=== PATIENT | female | born 1990 | race Caucasian/White ===

== ENCOUNTER 2019-06-08 09:41 | Inpatient (IN) | payer OTHER ==
[2019-06-07 14:08] VITALS: BMI 27.8
[2019-06-08] MEDS ORDERED: LIDOCAINE 0.5% (PF) 5 MG/ML (50 ML SDV) SQ PRN (10:22)
[2019-06-08] MEDS ORDERED: CARBOPROST TROMETHAMINE 250 MCG/ML 1 ML AMP IM PRN (10:22)
[2019-06-08] MEDS ORDERED: OXYTOCIN 10 UNIT/ML 1 ML VIAL IM PRN (10:22)
[2019-06-08] MEDS ORDERED: TERBUTALINE 1 MG/ML VIAL SQ PRN (10:22)
[2019-06-08] MEDS ORDERED: METHYLERGONOVINE 0.2 MG/ML 1 ML AMP IM PRN (10:22)
[2019-06-08] MEDS ORDERED: CITRIC ACID-SODIUM CITRATE 15 ML CUP PO ONE (10:43)
[2019-06-08] MEDS: LACTATED RINGERS 1,000 ML IV SCH (10:54)
[2019-06-08 10:55] LABS: Basophils # (A) 0.1 k/uL (0-0.2); Basophils % (A) 1 %; Eosinophils # (A) 0.2 k/uL (0-0.7); Eosinophils % (A) 2 %; HCT 36.5 % (34.0-46.0); HGB 12.2 gm/dL (11.4-16.0); Lymphocytes # (A) 2.4 k/uL (1.0-4.8); Lymphocytes % (A) 28 %; MCH 29.7 pg (25.0-35.0); MCHC 33.6 g/dL (31.0-37.0); MCV 88.3 fL (80.0-100.0); Mean Platelet Volume 6.6; Monocytes # (A) 0.6 k/uL (0-1.0); Monocytes % (A) 7 %; Neutrophils % (A) 60 %; Platelet Count 348 k/uL (150-450); RBC 4.13 m/uL (3.80-5.40); RDW 13.7 % (11.5-15.5); WBC 8.4 k/uL (3.8-10.6)
[2019-06-08] MEDS ORDERED: ONDANSETRON 4 MG/2 ML VIAL ONE ×2 (12:01)
[2019-06-08] MEDS ORDERED: OXYTOCIN 10 UNIT/ML 1 ML VIAL ONE ×2 (12:01)
[2019-06-08] MEDS ORDERED: NALBUPHINE 10 MG/ML (1 ML AMP) ONE ×2 (12:01)
[2019-06-08] MEDS ORDERED: ePHEDrine SULFATE/0.9% NACL/PF 50 MG/5 ML SYRINGE IV ONE ×2 (12:01)
[2019-06-08] MEDS ORDERED: MORPHINE SULFATE (PF) 0.3 MG/0.3 ML SYR ONE ×2 (12:01)
--- NOTE | 2019-06-08 12:46 | P.HPOB ---
History of Present Illness H&P Date: 06/08/19 Chief Complaint: IUP @ 39 1/7 weeks, h/o c/s x1 This is a pleasant 28-year-old 2 para 0101 at 39 and one sevenths weeks that presents to labor and delivery for repeat section. Patient has a prior history of PPROM at 19 weeks with subsequent delivery at 27 weeks. Patient has had an uncomplicated this time. She has been receiving routine care with myself. On admission she notes good movement she notes an occasional contraction she denies loss of fluid or vaginal bleeding. Next On bloodwork should a blood type of B+, rubella immune, B surface antigen negative, HIV negative, RPR nonreactive, GBS negative. Review of Systems Constitutional: Denies chills, Denies fatigue, Denies fever Ears, nose, mouth and throat: Denies headache Cardiovascular: Reports leg edema Respiratory: Denies dyspnea Gastrointestinal: Denies nausea, Denies vomiting Genitourinary: Reports Past Medical History Additional Past Medical History / Comment(s): heartburn, hx kidney infection History of Any Multi-Drug Resistant Organisms: None Reported Past Surgical History: Section Additional Past Surgical History / Comment(s): polyp removed from uterus Past Anesthesia/Blood Transfusion Reactions: No Reported Reaction Past Psychological History: No Psychological Hx Reported Smoking Status: Never smoker Past Alcohol Use History: None Reported Past Drug Use History: None Reported - Past Family History Mother Family Medical History: No Reported History Medications and Allergies Home Medications Medication Instructions Recorded Confirmed Type Pnv No.95/Ferrous Fum/Folic AC 1 each PO DAILY 06/07/19 06/08/19 History [ Multivitamin Tablet] Allergies Allergy/AdvReac Type Severity Reaction Status Date / Time gluten Allergy Unknown Verified 06/08/19 10:44 Exam Osteopathic Statement: *. No significant issues noted on an osteopathic structural exam other than those noted in the History and Physical/Consult. Vital Signs Temp Pulse Resp BP Pulse Ox 06/08/19 10:45 97.7 F 87 16 120/81 98 Targeted physical exam is performed and filer helper a well-nourished well- developed female in no acute distress, breathing is noted to be nonlabored heart has regular rate and rhythm abdomen is noted to be gravid and appropriate for gestational age, heart tones returned be category 1 and she is dania about every 5 minutes. Cervical exam is deferred. Results Result Diagrams: 06/08/19 10:35 Assessment and Plan (1) Term Current Visit: Yes Status: Acute Code(s): Z34.90 - ENCNTR FOR SUPRVSN OF NORMAL , UNSP, UNSP TRIMESTER SNOMED Code(s): 35460292 (2) H/O section Current Visit: Yes Status: Acute Code(s): Z98.891 - HISTORY OF UTERINE SCAR FROM PREVIOUS SURGERY SNOMED Code(s): 068507308 Plan: Patient is admitted with planned repeat section. Patient is understanding of the risks of surgery including but not limited to infection, bleeding, damage to bladder, bowel, ureteric or injury. All questions are answered and patient wishes to proceed.
[2019-06-08] MEDS ORDERED: METOCLOPRAMIDE 5 MG/ML 2 ML VIAL IVP PRN (12:51)
[2019-06-08] MEDS ORDERED: diphenhydrAMINE 25 MG CAP PO PRN (12:51)
[2019-06-08] MEDS ORDERED: diphenhydrAMINE 50 MG/ML 1 ML VIAL IVP PRN ×2 (12:51)
[2019-06-08] MEDS ORDERED: ACETAMINOPHEN TAB 325 MG TAB PO PRN (12:51)
[2019-06-08] MEDS ORDERED: NALOXONE 0.4 MG/ML 1 ML VIAL IV PRN (12:51)
[2019-06-08] MEDS ORDERED: ZOLPIDEM 5 MG TAB PO PRN (12:51)
[2019-06-08] MEDS ORDERED: diphenhydrAMINE 50 MG CAP PO PRN (12:51)
[2019-06-08] MEDS ORDERED: ACETAMINOPHEN IV (For NPO) 1,000 MG in EMPTY BAG 1 BAG IVPB ONE (12:51)
[2019-06-08] MEDS ORDERED: ONDANSETRON 4 MG/2 ML VIAL IVP PRN (12:51)
[2019-06-08] MEDS ORDERED: HYDROcodone/APAP 5-325MG 1 EACH TAB PO PRN (12:51)
--- NOTE | 2019-06-08 12:51 | P.OP ---
Date of Procedure: 06/08/19 Preoperative Diagnosis: IUP at 39 and 1/sevenths weeks history of at 27 weeks desires repeat Postoperative Diagnosis: Same, plus lower uterine segment uterine window Procedure(s) Performed: Repeat section Anesthesia: spinal Surgeon: Rachana Acosta Copy Cutter #1: Cherelle Sharma Estimated Blood Loss (ml): 800 IV fluids (ml): 900 Urine output (ml): 100 Pathology: none sent Condition: stable Disposition: observation Indications for Procedure: History of premature rupture of membranes, and subsequent at 27 weeks. Operative Findings: Ovaries and fallopian tubes appeared normal, lower uterine segment was noted to have a significant uterine window. Female delivered at 1216, weight of 6 lbs. 12 oz. with Apgars of 8 and 9 at one and 5 minutes respectfully. Description of Procedure: Patient was taken back to the operating room urged spinal anesthesia was found be adequate by the anesthesia department. She was then prepped and draped in normal sterile fashion in the dorsal supine position. A Pfannenstiel skin incision was made through her prior incision and carried to the underlying layer of fascia. The fascia was then incised in the midline and extended laterally. The superior aspect of the fascial incision was then grasped vicky clamps, elevated and underlying rectus muscles dissected off sharply. Attention was then turned to the inferior aspect of the fascial incision which was grasped with Marshall clamps, elevated and underlying rectus muscles dissected off sharply once again. The rectum muscles were in the midline, the peritoneum was identified and entered. The incision was then extended superiorly and inferiorly with good visualization the bladder. The bladder blade was then inserted into the abdomen and the vesicouterine peritoneum was identified and a bladder flap was created using sharp and blunt dissection. Hysterotomy incision was made with the scalpel amniotomy was performed and clear fluid was obtained. The head was encountered and delivered through the uterine incision. The umbilical cord was doubly clamped and cut and the was handed off to shahla ribeiro RN. The placenta was delivered manually and the uterus was cleared of all clots and debris with a moist laparotomy sponge. The uterine incision was then closed with 0 Vicryl in a running locked fashion from one lateral edge the other lateral edge. A second layer of suture was used to obtain hemostasis. Bleeding was noted from the midportion of the uterine incision in a [id number] suture was used to obtain hemostasis. The uterus was returned to the abdomen and the gutters were cleared of all clots and debris and the incision inspected once again, hemostasis was appreciated. The fascia was then closed with a running fashion from one lateral edge the other. The subcutaneous tissue was then irrigated and hemostasis was appreciated. Skin was closed with 4-0 Vicryl in a subcuticular fashion. Steri-Strips and sterile dressings were applied as needed. All counts were correct 2 patient tolerated procedure well.
[2019-06-08] MEDS ORDERED: IBUPROFEN IV 800 MG in SODIUM CHLORIDE 0.9% 250 ML IV ONE (12:53)
[2019-06-08] MEDS ORDERED: OXYTOCIN 20 UNITS/1000 ML NS 1,000 ML IV SCH (13:00)
[2019-06-08] MEDS: SENNOSIDES-DOCUSATE SODIUM 1 EACH TAB PO SCH (20:46)
[2019-06-08] MEDS: SIMETHICONE 80 MG CHEWABLE PO PRN (20:50)
[2019-06-09 06:57] LABS: Basophils % (A) 0 %; Eosinophils # (A) 0.1 k/uL (0-0.7); Eosinophils % (A) 1 %; HCT 31.9 % (34.0-46.0); HGB 10.6 gm/dL (11.4-16.0); Hypochromasia Slight; Lymphocytes # (A) 1.6 k/uL (1.0-4.8); Lymphocytes % (A) 15 %; MCH 29.9 pg (25.0-35.0); MCHC 33.1 g/dL (31.0-37.0); MCV 90.3 fL (80.0-100.0); Mean Platelet Volume 8.1; Monocytes # (A) 0.6 k/uL (0-1.0); Monocytes % (A) 6 %; Neutrophils # (A) 8.1 k/uL (1.3-7.7); Neutrophils % (A) 76 %; Platelet Count 226 k/uL (150-450); RBC 3.53 m/uL (3.80-5.40); RDW 13.8 % (11.5-15.5); WBC 10.7 k/uL (3.8-10.6)
[2019-06-09] MEDS: SENNOSIDES-DOCUSATE SODIUM 1 EACH TAB PO SCH ×2 (09:00→19:43)
[2019-06-09] MEDS ORDERED: PRENATAL VIT-IRON-FOLIC ACID 1 EACH CAP PO SCH (09:00)
--- NOTE | 2019-06-09 09:11 | P.PNOBGPC ---
Subjective - Subjective Principal diagnosis: POD 1 RCS Interval history: Patient did well overnight. She is ambulating and voiding without difficulty. She is tolerating clear liquids without nausea or vomiting. She states her pain is well-controlled. She is breast-feeding without difficulty. Patient reports: Reports appetite normal, Reports voiding normally, Reports pain well controlled, Reports ambulating normally [place]: doing well, nursing well Objective - Vital Signs Latest vital signs: Vital Signs Temp Pulse Resp BP Pulse Ox 06/09/19 04:00 98.4 F 73 16 119/81 96 06/09/19 00:00 98.3 F 71 16 121/80 97 06/08/19 20:15 98.4 F 89 16 130/83 97 06/08/19 16:00 97.9 F 90 16 130/74 96 06/08/19 14:40 97.9 F 77 16 119/74 98 06/08/19 14:10 98.0 F 72 16 131/73 99 06/08/19 13:40 98.1 F 85 16 133/68 99 06/08/19 13:25 86 16 127/60 98 06/08/19 13:10 99 16 134/56 98 06/08/19 12:55 93 16 130/67 98 06/08/19 12:40 97.8 F 108 H 15 128/66 99 06/08/19 10:45 97.7 F 87 16 120/81 98 Intake and Output 06/08/19 06/09/19 06/09/19 22:59 06:59 14:59 Intake Total 200 Output Total 800 1000 Balance -800 -800 Intake: Oral 200 Output: Urine 800 1000 Uretheral (Lu) 150 Other: # Voids 2 - Exam Abdomen: Present: normal appearance, soft Incision: Present: normal, dry, intact Uterus: Present: normal, firm - Labs Labs: Abnormal Lab Results - Last 24 Hours (Table) 06/09/19 Range/Units 06:40 WBC 10.7 H (3.8-10.6) k/uL RBC 3.53 L (3.80-5.40) m/uL Hgb 10.6 L (11.4-16.0) gm/dL Hct 31.9 L (34.0-46.0) % Neutrophils # 8.1 H (1.3-7.7) k/uL Assessment and Plan (1) Term Current Visit: Yes Status: Acute Code(s): Z34.90 - ENCNTR FOR SUPRVSN OF NORMAL , UNSP, UNSP TRIMESTER SNOMED Code(s): 31722019 (2) H/O section Current Visit: Yes Status: Acute Code(s): Z98.891 - HISTORY OF UTERINE SCAR FROM PREVIOUS SURGERY SNOMED Code(s): 583761255 (3) S/P section Current Visit: Yes Status: Acute Code(s): Z98.891 - HISTORY OF UTERINE SCAR FROM PREVIOUS SURGERY SNOMED Code(s): 908557869 Plan: Patient is doing well postoperatively will continue routine postoperative care. Anticipate discharge home tomorrow as she is doing well
[2019-06-09] MEDS: IBUPROFEN 600 MG TAB PO PRN ×2 (10:06→18:22)
[2019-06-09] MEDS: SIMETHICONE 80 MG CHEWABLE PO PRN (18:28)
[2019-06-09] MEDS: LACTATED RINGERS 1,000 ML IV SCH ×3 (20:40→20:41)
[2019-06-10] MEDS: IBUPROFEN 600 MG TAB PO PRN ×2 (00:09→14:55)
[2019-06-10 01:19] VITALS: RESP 16
--- NOTE | 2019-06-10 09:50 | P.DS ---
Providers Date of admission: 06/08/19 10:17 Expected date of discharge: 06/10/19 Attending physician: Rachana Acosta Primary care physician: Stated None - Discharge Diagnosis(es) (1) S/P section Current Visit: Yes Status: Acute Hospital Course: The patient is a 28-year-old 2 para 0101 admitted at 39 and one sevenths weeks by good dating parameters. She is admitted for repeat low transverse section having had a previous section at 27 weeks secondary to rupture of membranes. Her has been uncomplicated and group B strep status is negative. On labor and delivery, she was taken the operating room where she was delivered of a viable 6 lbs. 12 oz. baby girl with Apgars of 8 at 1 minute and 9 at 5 minutes. Her postoperative course was unremarkable with vital signs remaining stable and her temperature was afebrile throughout. She was deemed stable for discharge on day #2 and postoperative day #2 to follow-up in 2 weeks for an incision check and 6 weeks routinely. Discharge instructions included calling for any significantly increased bleeding or foul- smelling lochia, significantly increased fever or abdominal pain, perineal complaints, breast complaints, incisional complaints, or anything else that concerned her. She was additionally instructed to do no heavy lifting over the next 6 weeks time and to abstain from anything in the vagina to include intercourse. She was last instructed to do no driving until off of all pain medications or 2 weeks' time, whichever came first. She understood her instructions and agrees to follow up as noted above. Discharge medications included continued vitamins as she has opted to breast-feed as well as [id number] analgesic pain medications. She was provided with a prescription for Tylenol 3, 1-2 by mouth every 6 hours when necessary pain, #20 dispensed with no refills. Maternal blood type is B+ and rubella status is imm une. Discharge hemoglobin and hematocrit were 10.6 and 31.9 respectively. Procedures: #1. Repeat low transverse section Patient Condition at Discharge: Stable Plan - Discharge Summary Discharge Rx Participant: No New Discharge Prescriptions: No Action Pnv No.95/Ferrous Fum/Folic AC [ Multivitamin Tablet] 1 each PO DAILY Discharge Medication List Pnv No.95/Ferrous Fum/Folic AC [ Multivitamin Tablet] 1 each PO DAILY 06/07/19 [History] Follow up Appointment(s)/Referral(s): Rachana Acosta DO [Doctor of Osteopathic Medicine] - 2 Weeks Discharge Disposition: HOME SELF-CARE
[2019-06-10] MEDS: SENNOSIDES-DOCUSATE SODIUM 1 EACH TAB PO SCH (09:53)
[2019-06-10 14:10] VITALS: BP 115/79; PULSE 83; TEMP 98.2
== END 2019-06-10 15:00 | disposition home or self-care (01) | DRG 788 ==
LOC: 4FBP 10:17
PROVIDERS: ADMIT Obstetrics & Gynecology Obstetrics; ATTEND Obstetrics & Gynecology Obstetrics
PROC: 10D00Z1 Extraction of Products of Conception, Low, Open Approach (ICD-10-PCS; principal; 2019-06-08 12:00)
DX: O34.211 Maternal care for low transverse scar from previous cesarean delivery (principal); O99.62 Diseases of the digestive system complicating childbirth; K21.9 Gastro-esophageal reflux disease without esophagitis; Z37.0 Single live birth; Z3A.39 39 weeks gestation of pregnancy; Z91.018 Allergy to other foods
CPT/HCPCS: 85025; 86850; 86900; 86901